=== PATIENT | male | born 1975 | race African-American/Black ===

== ENCOUNTER 2017-04-08 15:16 | Emergency (ER) | payer OTHER ==
[~2017-04-08] VITALS: Ht 177.8 cm; Wt 81.8 kg
[~2017-04-08 15:16] MED LIST: FLEXERIL10 MG PO; MOTRIN800 MG PO
[2017-04-08 18:38] VITALS: BP 111/75
== END 2017-04-08 18:38 | disposition home or self-care (01) ==
LOC: EME 15:16
DX: S93.601A Unspecified sprain of right foot, initial encounter (principal); W19.XXXA Unspecified fall, initial encounter
CPT/HCPCS: 73630; 99281; 99284

== ENCOUNTER 2017-09-16 12:08 | Emergency (ER) | payer OTHER ==
[~2017-09-16] VITALS: Ht 177.8 cm; Wt 86.1 kg
[2017-09-16 12:40] VITALS: BP 115/78
[2017-09-16] MEDS ORDERED: NAPROXEN500 MG PO (16:03)
== END 2017-09-16 16:15 | disposition home or self-care (01) ==
LOC: EME 12:08
PROC: 0SSMXZZ Reposition Right Metatarsal-Phalangeal Joint, External Approach (ICD-10-PCS; principal; 2017-09-16)
DX: S93.124A Dislocation of metatarsophalangeal joint of right lesser toe(s), initial encounter (principal); W50.0XXA Accidental hit or strike by another person, initial encounter
CPT/HCPCS: 73630; 99281; 99283

== ENCOUNTER 2017-11-17 13:03 | Emergency (ER) | payer OTHER ==
[~2017-11-17] VITALS: Ht 177.8 cm; Wt 87.5 kg
[~2017-11-17 13:03] MED LIST changes: +NAPROXEN500 MG PO
[2017-11-17] MEDS ORDERED: PERCOCET 5/31 TABLET PO (17:47)
[2017-11-17 18:11] VITALS: BP 136/78
== END 2017-11-17 18:12 | disposition home or self-care (01) ==
LOC: EME 13:03
PROC: 0RSUXZZ Reposition Right Metacarpophalangeal Joint, External Approach (ICD-10-PCS; principal; 2017-11-17)
DX: S93.124A Dislocation of metatarsophalangeal joint of right lesser toe(s), initial encounter (principal); F17.200 Nicotine dependence, unspecified, uncomplicated
CPT/HCPCS: 73630; 73660; 99281; 99284; S0020

== ENCOUNTER 2018-01-20 02:07 | Emergency (ER) | payer OTHER ==
[~2018-01-20] VITALS: Ht 175.3 cm; Wt 82.1 kg
[~2018-01-20 02:07] MED LIST changes: +PERCOCET 5/31 TABLET PO
[2018-01-20] MEDS ORDERED: TRAMADOL HCL50 MG PO (04:52)
[2018-01-20] MEDS ORDERED: PERCOCET 5/31 TABLET PO (04:57)
[2018-01-20 05:22] VITALS: BP 141/98
== END 2018-01-20 05:23 | disposition home or self-care (01) ==
LOC: EME 02:07
PROVIDERS: Emergency Medicine
DX: S92.354A Nondisplaced fracture of fifth metatarsal bone, right foot, initial encounter for closed fracture (principal); M24.477 Recurrent dislocation, right toe(s); J06.9 Acute upper respiratory infection, unspecified; W20.8XXA Other cause of strike by thrown, projected or falling object, initial encounter; F17.200 Nicotine dependence, unspecified, uncomplicated
CPT/HCPCS: 71046; 73630; 87502; 87651 90; 99281; 99283

== ENCOUNTER 2018-01-26 23:27 | Emergency (ER) | payer OTHER ==
[~2018-01-26] VITALS: Ht 177.8 cm; Wt 80.2 kg
[~2018-01-26 23:27] MED LIST changes: +TRAMADOL HCL50 MG PO
[2018-01-27] MEDS ORDERED: MOBIC7.5 MG PO (00:59)
[2018-01-27 01:11] VITALS: BP 109/87
== END 2018-01-27 01:20 | disposition home or self-care (01) ==
LOC: EME 23:27
DX: S93.101A Unspecified subluxation of right toe(s), initial encounter (principal); S90.31XA Contusion of right foot, initial encounter; W50.0XXA Accidental hit or strike by another person, initial encounter; F17.200 Nicotine dependence, unspecified, uncomplicated
CPT/HCPCS: 73630; 99281; 99283